=== PATIENT | male | born 1975 | race Caucasian/White ===

== ENCOUNTER 2018-10-10 21:46 | Inpatient (IN) | payer MEDICARE ==
[2018-10-10] MEDS ORDERED: ONDANSETRON 4 MG/2 ML VIAL IVPB ONE (22:11)
[2018-10-10] MEDS ORDERED: SODIUM CHLORIDE 1,000 ML IV ONE (22:11)
--- NOTE | 2018-10-10 22:12 | PDOC ---
Documentation entered by Linda Tate SCRIBE, acting as scribe for Nano Linton MD. Nano Linton MD: This documentation has been prepared by the Lea ríos Sammi, SCRIBE, under my direction and personally reviewed by me in its entirety. I confirm that the documentation accurately reflects all work, treatment, procedures, and medical decision making performed by me. History of Present Illness - General Chief Complaint: Vomiting/Diarrhea Stated Complaint: VOMITING & DIARRHEA History Source: Patient Exam Limitations: Language Barrier - History of Present Illness Initial Comments: 10/10/18 22:06 The patient is a 42 year old male who presents to the emergency department for evaluation of 2 days of vomiting, headache, and general malaise. Housemate at bedside the patient has appeared yellow the past 2 days. Denies SOB, chest pain. Denies sick contact or recent travel. PAST MEDICAL HISTORY: no significant history PAST SURGICAL HISTORY: no significant history FAMILY HISTORY: no pertinent history SOCIAL HISTORY: Pt lives with family and is employed. MEDICATIONS: reviewed ALLERGIES: As per nursing notes Review of Systems General: (+) headache. No fevers or chills, no weakness, no weight loss HEENT: No change in vision. No sore throat,. No ear pain CardioVascular: No chest pain or shortness of breath Respiratory:No cough, or wheezing. Gastrointestinal: (+)nausea, vomiting. No diarrhea or constipation, No rectal bleeding Genitourinary: No dysuria, hematuria, or frequency Musculoskeletal: No joint or muscle pain or swelling Neurologic: No vertigo, dizziness or loss of consciousness All other systems reviewed and normal Exam GENERAL: The patient is awake, alert, and fully oriented, in no acute distress. HEAD: Normal with no signs of trauma. EYES: Pupils equal, round and reactive to light, extraocular movements intact, sclera anicteric, conjunctiva clear. EXTREMITIES: Normal range of motion, no edema. NEUROLOGICAL: Normal speech, normal gait. PSYCH: Normal mood, normal affect. SKIN: Warm, Dry, normal turgor, no rashes or lesions noted. 10/10/18 22:10 Assessment and plan: This is a 42-year-old male brought in by his friend for evaluation of nausea vomiting. Patient hasn't vomiting and nausea for 2 days. Patient denies any chest pain abdominal pain shortness of breath cough congestion or diarrhea. Patient denies any recent travel. Labs were sent including CBC, comp and lipase. IV line was placed and patient is receiving IV fluids and Zofran. 10/10/18 23:37 Patient's hemoglobin came back 5.7. A rectal exam was done that showed normal- appearing brown stool however it was occult blood. Given the fact that patient' s MCV is 66 patient is most likely been having some mild chronic blood loss for a number of months to the point now his hemoglobin is 5.7. Patient came in for nausea and vomiting however he has had no further vomiting. 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 Patient will be admitted to an inpatient bed transfused 2 units and further evaluated. Patient will be admitted to the hospitalist service. Past History - Past Medical History Allergies/Adverse Reactions: Allergies Allergy/AdvReac Type Severity Reaction Status Date / Time No Known Allergies Allergy Verified 10/10/18 21:48 Home Medications: Ambulatory Orders NK [No Known Home Medication] 10/10/18 *Physical Exam - Vital Signs Last Vital Signs Temp Pulse Resp BP Pulse Ox 98.6 F 104 H 15 130/77 100 10/10/18 21:48 10/10/18 21:48 10/10/18 21:48 10/10/18 21:48 10/10/18 21:48 ED Treatment Course - LABORATORY CBC & Chemistry Diagram: 10/10/18 22:15 10/10/18 22:15 *DC/Admit/Observation/Transfer Diagnosis at time of Disposition: Anemia - Discharge Dispostion Condition at time of disposition: Good Decision to Admit order: Yes - Referrals - Patient Instructions - Post Discharge Activity
[2018-10-10] MEDS ORDERED: ONDANSETRON 4 MG/2 ML VIAL ONE (22:15)
[2018-10-10 22:29] LABS: BASO % 0.5 % (0-2.0); EOS % 0.9 % (0-4.5); LYMPH % 28.8 % (8-40); MCH 21.3 pg (25.7-33.7); MCHC 31.9 g/dl (32.0-35.9); MEAN CELL VOLUME 66.6 fl (80-96); MEAN PLT VOLUME 7.3 fl (7.5-11.1); MONO % 7.1 % (3.8-10.2); NEUT % 62.7 % (42.8-82.8); PLATELET COUNT 388 K/MM3 (134-434); RBC 2.69 M/mm3 (4.00-5.60); RDW 17.5 % (11.9-15.9); WHITE BLOOD COUNT 5.8 K/mm3 (4.0-10.8)
[2018-10-10 22:45] LABS: ADD RBC MORPHOLOGY YES; HEMATOCRIT 17.9 % (35.4-49); HEMOGLOBIN 5.7 GM/dl (11.7-16.9)
[2018-10-10 22:46] LABS: ALBUMIN 3.6 g/dl (3.4-5.0); BILIRUBIN,TOTAL 0.7 mg/dl (0.2-1); CALCIUM 8.6 mg/dl (8.5-10); POTASSIUM 3.4 mmol/L (3.5-5.1); TOT PROT 5.9 g/dl (6.4-8.2)
[2018-10-10 23:33] LABS: ANISOCYTOSIS 1+; PLATELET ESTIMATE SLT INCREASE
[2018-10-11] MEDS ORDERED: ONDANSETRON 4 MG/2 ML VIAL IVPUSH PRN ×2 (01:51→15:45)
[2018-10-11] MEDS ORDERED: SODIUM CHLORIDE 0.45% 1,000 ML IV SCH (02:00)
[2018-10-11 05:25] LABS: MCH 21.4 pg (25.7-33.7); MCHC 32.3 g/dl (32.0-35.9); MEAN CELL VOLUME 66.3 fl (80-96); PLATELET COUNT 367 K/MM3 (134-434); RBC 2.57 M/mm3 (4.00-5.60); RDW 18.8 % (11.9-15.9); WHITE BLOOD COUNT 9.8 K/mm3 (4.0-10.0)
[2018-10-11 05:34] LABS: HEMOGLOBIN 5.5 GM/dL (11.7-16.9)
--- NOTE | 2018-10-11 09:38 | EKG ---
Test Reason : Blood Pressure : / mmHG Vent. Rate : 105 BPM Atrial Rate : 105 BPM P-R Int : 116 ms QRS Dur : 136 ms QT Int : 382 ms P-R-T Axes : 053 -41 106 degrees QTc Int : 504 ms SINUS TACHYCARDIA VENTRICULAR PRE-EXCITATION, WPW PATTERN TYPE A ABNORMAL ECG NO PREVIOUS ECGS AVAILABLE Confirmed by Milton ROBERTS, Marcus ([id number]) on 10/11/2018 9:38:25 AM Referred By: ISABELA PIERRE Confirmed By:Marcus Rose MD
--- NOTE | 2018-10-11 09:51 | HP ---
CHIEF COMPLAINT: Blood per rectum PCP: None HISTORY OF PRESENT ILLNESS: 42 year-old male with no reported PMH and who has not seen a health care provider in 12 years, presented to the ED for evaluation of nausea, vomiting, and bleeding per rectum x 3 days. Patient states three days ago he first noticed blood in the toilet, separate from his stool. He describes the blood as "black." (Patient interviewed with [employer] controller). He has had approximately 10 such episodes over the past 3 days. On Wednesday patient began vomiting and this continued until Wednesday when he came to the ED. 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 He has been taking daily Advil for a long time. He denies any history of ulcers or any type of bleeding disorder. Patient denies any cardiac history, has never been told he has an irregular heart rhythm. Denies chest pain, palpitations, SOB, CRUZ, lower extremity edema. 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; lives with friends in [place] Smoking: denies Alcohol: denies Drugs: denies Family History: reviewed, non-contributory Allergies No Known Allergies Allergy (Verified 10/10/18 21:48) HOME MEDICATIONS: Home Medications Medication Instructions Recorded NK [No Known Home Medication] 10/10/18 REVIEW OF SYSTEMS CONSTITUTIONAL: Absent: fever, chills, diaphoresis, generalized weakness, malaise, loss of appetite, weight change HEENT: Absent: rhinorrhea, nasal congestion, throat pain, throat swelling, difficulty swallowing, mouth swelling, ear pain, eye pain, visual changes CARDIOVASCULAR: Absent: chest pain, syncope, palpitations, irregular heart rate, lightheadedness , peripheral edema RESPIRATORY: Absent: cough, shortness of breath, dyspnea with exertion, orthopnea, wheezing, stridor, hemoptysis GASTROINTESTINAL: +rectal bleeding/melena, nausea, vomiting Absent: abdominal pain, abdominal distension, nausea, vomiting, diarrhea, constipation, melena, hematochezia GENITOURINARY: Absent: dysuria, frequency, urgency, hesitancy, hematuria, flank pain, genital pain MUSCULOSKELETAL: Absent: myalgia, arthralgia, joint swelling, back pain, neck pain SKIN: Absent: rash, itching, pallor HEMATOLOGIC/IMMUNOLOGIC: Absent: easy bleeding, easy bruising, lymphadenopathy, frequent infections ENDOCRINE: Absent: unexplained weight gain, unexplained weight loss, heat intolerance, cold intolerance NEUROLOGIC: Absent: headache, focal weakness or paresthesias, dizziness, unsteady gait, seizure, mental status changes, bladder or bowel incontinence PSYCHIATRIC: Absent: anxiety, depression, suicidal or homicidal ideation, hallucinations. PHYSICAL EXAMINATION Vital Signs - 24 hr 10/10/18 10/10/18 10/11/18 21:48 23:36 00:48 Temperature 98.6 F 99 F Pulse Rate 104 H 95 H Pulse Rate [ 96 H Left] Respiratory 15 16 17 Rate Blood Pressure 130/77 129/64 Blood Pressure 119/73 [Right] O2 Sat by Pulse 100 100 98 Oximetry (%) 10/11/18 10/11/18 05:51 08:16 Temperature 98.4 F 98.4 F Pulse Rate 87 88 Pulse Rate [ Left] Respiratory 17 16 Rate Blood Pressure 107/55 L 116/60 Blood Pressure [Right] O2 Sat by Pulse 98 98 Oximetry (%) GENERAL: Awake, alert, and fully oriented, in no acute distress. HEAD: Normal with no signs of trauma. EYES: Pupils equal, round and reactive to light, extraocular movements intact, sclera anicteric, conjunctiva clear. No lid lag. LUNGS: Breath sounds equal, clear to auscultation bilaterally. No wheezes, and no crackles. No accessory muscle use. HEART: Regular rate and rhythm, S1 and S2 ABDOMEN: Soft, nontender, not distended UPPER EXTREMITIES: 2+ pulses, warm, well-perfused. No cyanosis. No clubbing. No peripheral edema. LOWER EXTREMITIES: 2+ pulses, warm, well-perfused. No calf tenderness. No peripheral edema. NEUROLOGICAL: Cranial nerves II-XII intact. Normal speech. Laboratory Results - last 24 hr 10/10/18 10/10/18 10/10/18 22:15 22:15 22:15 WBC 5.8 RBC 2.69 L Hgb 5.7 L* Hct 17.9 L MCV 66.6 L MCH 21.3 L MCHC 31.9 L RDW 17.5 H Plt Count 388 MPV 7.3 L Absolute Neuts (auto) 3.6 Neutrophils % 62.7 Lymphocytes % 28.8 Monocytes % 7.1 Eosinophils % 0.9 Basophils % 0.5 Hypochromia 3+ Platelet Estimate Slt increase Anisocytosis 1+ Microcytosis 1+ Sodium 138 Potassium 3.4 L Chloride 106 Carbon Dioxide 26 Anion Gap 6 L BUN 12.0 Creatinine 1.0 Est GFR (CKD-EPI)AfAm 106.36 Est GFR (CKD-EPI)NonAf 91.77 Random Glucose 178 H Calcium 8.6 Total Bilirubin 0.7 AST 20 ALT 15 Alkaline Phosphatase 66 Creatine Kinase Troponin I Total Protein 5.9 L Albumin 3.6 Lipase 141 Stool Occult Blood Blood Type Antibody Screen Crossmatch 10/10/18 10/10/18 10/10/18 22:15 22:15 22:15 WBC RBC Hgb Hct MCV MCH MCHC RDW Plt Count MPV Absolute Neuts (auto) Neutrophils % Lymphocytes % Monocytes % Eosinophils % Basophils % Hypochromia Platelet Estimate Anisocytosis Microcytosis Sodium Potassium Chloride Carbon Dioxide Anion Gap BUN Creatinine Est GFR (CKD-EPI)AfAm Est GFR (CKD-EPI)NonAf Random Glucose Calcium Total Bilirubin AST ALT Alkaline Phosphatase Creatine Kinase 115 Troponin I < 0.03 Total Protein Albumin Lipase Stool Occult Blood Positive Blood Type Antibody Screen Crossmatch 10/10/18 10/11/18 10/11/18 23:20 00:50 02:53 WBC 9.8 RBC 2.57 L Hgb 5.5 L* Hct 17.0 L MCV 66.3 L MCH 21.4 L MCHC 32.3 RDW 18.8 H Plt Count 367 MPV 8.0 Absolute Neuts (auto) Neutrophils % Lymphocytes % Monocytes % Eosinophils % Basophils % Hypochromia Platelet Estimate Anisocytosis Microcytosis Sodium Potassium Chloride Carbon Dioxide Anion Gap BUN Creatinine Est GFR (CKD-EPI)AfAm Est GFR (CKD-EPI)NonAf Random Glucose Calcium Total Bilirubin AST ALT Alkaline Phosphatase Creatine Kinase Troponin I Total Protein Albumin Lipase Stool Occult Blood Blood Type O POSITIVE O POSITIVE Antibody Screen Negative Crossmatch See Detail ASSESSMENT/PLAN 42 year-old male with no reported PMH and who has not seen a health care provider in 12 years. Admitted for acute blood loss anemia. 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 Full code. Visit type - Emergency Visit Emergency Visit: Yes ED Registration Date: 10/11/18 Care time: The patient presented to the Emergency Department on the above date and was hospitalized for further evaluation of their emergent condition. - New Patient This patient is new to me today: Yes Date on this admission: 10/11/18 - Critical Care Critical Care patient: No
[2018-10-11] MEDS ORDERED: FUROSEMIDE 40 MG/4 ML INJECTABLE VIAL IVPUSH ONE ×2 (10:34→15:45)
[2018-10-11] MEDS ORDERED: POTASSIUM CHLORIDE TABS 20 MEQ TABLET.ER (FP) PO ONE (12:00)
--- NOTE | 2018-10-11 12:00 | EKG ---
Test Reason : Blood Pressure : / mmHG Vent. Rate : 076 BPM Atrial Rate : 076 BPM P-R Int : 110 ms QRS Dur : 146 ms QT Int : 424 ms P-R-T Axes : 063 -49 088 degrees QTc Int : 477 ms NORMAL SINUS RHYTHM VENTRICULAR PRE-EXCITATION, WPW PATTERN TYPE A ABNORMAL ECG WHEN COMPARED WITH ECG OF 10-OCT-2018 23:03, NO SIGNIFICANT CHANGE WAS FOUND Confirmed by Marcus Rose MD ([id number]) on 10/11/2018 11:59:48 AM Referred By: FAUSTO Confirmed By:Marcus Rose MD
[2018-10-11 13:17] LABS: HEMATOCRIT 26.8 % (35.4-49); HEMOGLOBIN 8.4 GM/dl (11.7-16.9); MCH 23.6 pg (25.7-33.7); MCHC 31.5 g/dl (32.0-35.9); MEAN CELL VOLUME 74.9 fl (80-96); PLATELET COUNT 412 K/MM3 (134-434); RBC 3.58 M/mm3 (4.00-5.60); WHITE BLOOD COUNT 7.8 K/mm3 (4.0-10.8)
[2018-10-11 13:29] LABS: RDW 23.1 % (11.9-15.9)
--- NOTE | 2018-10-11 17:57 | HOSP ---
Subjective - Review of Symptoms Subjective: 42M transferred from [facility] to [facility] for evaluation of anemia. His Hgb was 5.7 and was microcytic. He was given 2 U PRBC and Hgb is 8.4. He states bnoticing rectal bleeding for three days prior that became darker as the days progressed. He takes ibuprofen for headache and has been taking one daily over the last 5 days. She denies abdominal pain, nausea, vomiting, recent change in stool caliber, unintentional weight loss. There has been no overt rectal bleeding since admission. There is no family history of colorectal cancer or other GI malignancy. He has no regular medical care. Physical Examination Vital Signs: Vital Signs Temperature 98.4 F 10/11/18 15:50 Pulse Rate 82 10/11/18 15:50 Respiratory Rate 20 10/11/18 16:05 Blood Pressure 124/71 10/11/18 15:50 O2 Sat by Pulse Oximetry (%) 100 10/11/18 16:05 Labs: CBC, BMP 10/11/18 13:10 10/10/18 22:15 Hospitalist Encounter Assessment: Seen by Dr Moreno from GI. Planned colonscopy/egd planned for tomorrow. NPO
[2018-10-11] MEDS ORDERED: BISACODYL 5 MG TABLET.DR (FP) PO ONE (18:12)
--- NOTE | 2018-10-11 18:21 | CON.GI ---
Consult Consult Specialty:: GI Referred by:: Hospitalist Service Reason for Consultation:: Anemia / rectal bleeding - History of Present Illness Chief Complaint: [employer]ographic [employer] [id number] utilized. Rectal bleeding / dark bowel movements History of Present Illness: 42M transferred from [facility] to [facility] for evaluation of anemia. His Hgb was 5.7 and was microcytic. He was given 2 U PRBC and Hgb is 8.4. He states bnoticing rectal bleeding for three days prior that became darker as the days progressed. He takes ibuprofen for headache and has been taking one daily over the last 5 days. She denies abdominal pain, nausea, vomiting, recent change in stool caliber, unintentional weight loss. There has been no overt rectal bleeding since admission. There is no family history of colorectal cancer or other GI malignancy. He has no regular medical care. - History Source History Provided By: Patient, Medical Record Limitations to Obtaining History: No Limitations - Past Medical History Additional Medical History: Denies - Past Surgical History Additional Surgical History: Denies - Alcohol/Substance Use Hx Alcohol Use: No History of Substance Use: reports: None - Smoking History Smoking history: Never smoked - Social History Usual Living Arrangement: Alone ADL: Independent Occupation: Works at [employer] Place of : Other ([facility]) Came to [place]year[place] 2004 History of Recent Travel: No Home Medications - Allergies Allergies/Adverse Reactions: Allergies Allergy/AdvReac Type Severity Reaction Status Date / Time No Known Allergies Allergy Verified 10/10/18 21:48 - Home Medications Home Medications: Ambulatory Orders NK [No Known Home Medication] 10/10/18 Family Disease History - Family Disease History Family Disease History: Other: Father (Alive: healthy), Mother (Alive: healthy) , Brother (1, healthy), Daughter (1, healthy) Other Family History: No family history of colorectal cancer or other GI malignancy Review of Systems - Review of Systems Constitutional: denies: Chills Cardiovascular: denies: Chest Pain Gastrointestinal: reports: Melena, Rectal Bleeding. denies: Abdominal Pain, Diarrhea, Vomiting, Vomiting Blood Physical Exam-GI Vital Signs: Vital Signs Temperature 98.4 F 10/11/18 15:50 Pulse Rate 82 10/11/18 15:50 Respiratory Rate 20 10/11/18 16:05 Blood Pressure 124/71 10/11/18 15:50 O2 Sat by Pulse Oximetry (%) 100 10/11/18 16:05 Constitutional: Yes: Calm Eyes: No: Sclera Icterus Cardiovascular: Yes: Regular Rate and Rhythm. No: Murmur Respiratory: Yes: CTA Bilaterally Gastrointestinal Inspection: No: Distention, Scars ...Auscultate: Yes: Normoactive Bowel Sounds ...Palpate: Yes: Soft. No: Hepatomegaly, Splenomegaly ...Percussion: No: Tympanitic ...Rectal Exam: Yes: Other (No external lesions, no masses, no blood/melena/ stool) Edema: No (No LE edema) Neurological: Yes: Alert Labs: CBC, BMP 10/11/18 13:10 10/10/18 22:15 Problem List - Problems (1) Anemia Assessment/Plan: Microcytic nature of his anemia suggests chronicity, likely worsened by acute GI bleed. Discussed this with Mr. Rodriguez. explained that upper endoscopy and colonoscopy can be undertaken to exclude potential causes of his rectal bleeding / anemia such as PUD, bleeding blood vesels, polyps or cancer of the GI tract such as colon cancer. We discussed potential risks of the procedures like but not limited to bleeding, perforation requiring surgery to repair, infection, sedation medication effects all of which could be potentially life threatening. He has agreed to the procedures. Plan for EGD/Colon 10/12 For now: Monitor H/H and for active bleeding. Keep Hgb >7 Clear diet ordered for tonight, NPO after midnight. OK to continue bowel prep after midnight for completion. Code(s): D64.9 - ANEMIA, UNSPECIFIED Qualifiers: Anemia type: unspecified type Qualified Code(s): D64.9 - Anemia, unspecified
[2018-10-11] MEDS ORDERED: PEG 3350/NA SULF BICARB CL/KCL 4000 ML SOLN.RECON PO ONE (19:00)
[2018-10-11 20:52] LABS: BLOOD UREA NITROGEN 6.1 mg/dL (7-18); CALCIUM 8.6 mg/dL (8.5-10.1); CREATININE 0.9 mg/dL (0.55-1.3); MAGNESIUM 2.2 mg/dL (1.8-2.4); POTASSIUM 3.9 mmol/L (3.5-5.1)
[2018-10-11 21:38] LABS: INR 1.11 (0.83-1.09); PROTHROMBIN TIME (PATIENT) 13.1 SEC (9.7-13.0)
[2018-10-12 06:34] LABS: BASO % 0.5 % (0-2.0); EOS % 0.2 % (0-4.5); HEMATOCRIT 24.8 % (35.4-49); HEMOGLOBIN 8.1 GM/dL (11.7-16.9); LYMPH % 23.8 % (8-40); MCH 23.5 pg (25.7-33.7); MCHC 32.8 g/dl (32.0-35.9); MEAN CELL VOLUME 71.7 fl (80-96); MEAN PLT VOLUME 7.3 fl (7.5-11.1); MONO % 7.9 % (3.8-10.2); NEUT % 67.6 % (42.8-82.8); PLATELET COUNT 395 K/MM3 (134-434); RBC 3.46 M/mm3 (4.00-5.60); RDW 24.3 % (11.9-15.9); WHITE BLOOD COUNT 7.3 K/mm3 (4.0-10.0)
[2018-10-12 06:57] LABS: ALBUMIN 3.6 g/dl (3.4-5.0); BILIRUBIN,TOTAL 1.2 mg/dL (0.2-1); BLOOD UREA NITROGEN 7.2 mg/dL (7-18); CALCIUM 8.6 mg/dL (8.5-10.1); CREATININE 0.8 mg/dL (0.55-1.3); MAGNESIUM 2.3 mg/dL (1.8-2.4); TOT PROT 6.2 g/dl (6.4-8.2)
--- NOTE | 2018-10-12 07:43 | PN ---
Progress Note, Physician Chief Complaint: no complaints offered, awaiting EGD History of Present Illness: 42 year-old male with no reported PMH and who has not seen a health care provider in 12 years, presented to the ED for evaluation of nausea, vomiting, and bleeding per rectum x 3 days. Patient states three days ago he first noticed blood in the toilet, separate from his stool. He describes the blood as "black." (Patient interviewed with Invaluable translator interpreter). He has had approximately 10 such episodes over the past 3 days. On Wednesday patient began vomiting and this continued until Wednesday when he came to the ED. 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 He has been taking daily Advil for a long time. He denies any history of ulcers or any type of bleeding disorder. Patient denies any cardiac history, has never been told he has an irregular heart rhythm. Denies chest pain, palpitations, SOB, CRUZ, lower extremity edema. - Current Medication List Current Medications: Active Medications Furosemide (Lasix Injection -) 40 mg IVPUSH ONCE ONE Stop: 10/11/18 15:46 Ondansetron HCl (Zofran Injection) 4 mg IVPUSH Q6H PRN PRN Reason: NAUSEA - Objective Vital Signs: Vital Signs Temperature 98.2 F 10/12/18 05:00 Pulse Rate 72 10/12/18 05:00 Respiratory Rate 18 10/12/18 07:30 Blood Pressure 114/76 10/12/18 05:00 O2 Sat by Pulse Oximetry (%) 100 10/12/18 07:30 Constitutional: Yes: Well Nourished, No Distress, Calm Eyes: Yes: WNL, Conjunctiva Clear, EOM Intact HENT: Yes: WNL, Atraumatic, Normocephalic Neck: Yes: WNL, Supple, Trachea Midline Cardiovascular: Yes: WNL, Regular Rate and Rhythm Respiratory: Yes: WNL, Regular, CTA Bilaterally Gastrointestinal: Yes: WNL, Normal Bowel Sounds, Soft Genitourinary: Yes: WNL Breast(s): Yes: WNL Musculoskeletal: Yes: WNL Extremities: Yes: WNL Edema: No Peripheral Pulses WNL: Yes Integumentary: Yes: WNL Neurological: Yes: WNL, Alert, Oriented ...Motor Strength: WNL Psychiatric: Yes: WNL, Alert, Oriented Labs: CBC, BMP 10/12/18 05:25 INR, PTT INR 1.11 (0.83-1.09) H 10/11/18 21:00 Problem List - Problems (1) Prophylactic measure Assessment/Plan: FEN bowel prep in progress , NPO monitor electrolytes DVT ambulatory no chemical AC Dispo maintain on tele full code discharge planning Code(s): Z29.9 - ENCOUNTER FOR PROPHYLACTIC MEASURES, UNSPECIFIED (2) Occult blood in stools Assessment/Plan: all stool for occult blood Code(s): R19.5 - OTHER FECAL ABNORMALITIES (3) Anemia Assessment/Plan: hgb 5.5 on admission, 2U PRBC-->8.1/24.8 after GI consulted and plan for today transfuse blood to keep hgb>8.0 start iron, folic acid when able to take PO Code(s): D64.9 - ANEMIA, UNSPECIFIED Qualifiers: Anemia type: unspecified type Qualified Code(s): D64.9 - Anemia, unspecified (4) WPW (Xblzs-Ttixqonlu-Mjvqb syndrome) Assessment/Plan: WPW Pattern Type A on EKG appreciate cardiology consultation maintain on tele serial trop serial ekg Code(s): I45.6 - PRE-EXCITATION SYNDROME Visit type - Emergency Visit Emergency Visit: Yes ED Registration Date: 10/10/18 Care time: The patient presented to the Emergency Department on the above date and was hospitalized for further evaluation of their emergent condition. - New Patient This patient is new to me today: Yes Date on this admission: 10/12/18 - Critical Care Critical Care patient: No - Discharge Referral Referred to [facility] Med [facility] No
--- NOTE | 2018-10-12 08:35 | CON.CARD ---
Consult Consult Specialty:: cardiology Reason for Consultation:: WPW - History of Present Illness Chief Complaint: Pt A&Ox3; no chest pain, dyspnea, palpitations. Feels weak. History of Present Illness: 42 year-old male (temitope Salas), with no reported PMH and who has not seen a health care provider in 12 years, presented to the ED for evaluation of nausea, vomiting, and bleeding per rectum x 3 days. Patient states three days ago he first noticed blood in the toilet, separate from his stool. He describes the blood as "black." (Patient interviewed with [employer] interpreter). He has had approximately 10 such episodes over the past 3 days. On Wednesday patient began vomiting and this continued until Wednesday when he came to the ED. 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 He has been taking daily Advil for a long time. He denies any history of ulcers or any type of bleeding disorder. Patient denies any cardiac history, has never been told he has an irregular heart rhythm. Denies chest pain, palpitations, SOB, CRUZ, lower extremity edema. Pt first noticed he was passing blood 4 months ago; in the past few days, the amount increased , and he felt a mass protruding from the anus at times. He felt weak and "turned white" a few days ago, and is not sure if he passed out before his friends brought him to the hospital. He has always been 120-125 lbs as an adult, and duane appreciable weight loss over the past several months. He denies personal or family hx of cardiac disease.No hx of sudden in the family. 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 He enjoys playing soccer, and was doing so until 6 weeks ago. He also often jogs for 30-45 minutes. He denies hx of chest pain, palpitations, or dyspnea. Never smoked or drank alcohol. ER course was notable for: (1) Hgb 5.5; Hct 17.0 (2) K 3.4 (3) occult stool positive (4) ECG: WPW Pattern Type A - History Source History Provided By: Patient, Medical Record Limitations to Obtaining History: No Limitations - Past Medical History Additional Medical History: Denies - Past Surgical History Additional Surgical History: Denies - Alcohol/Substance Use Hx Alcohol Use: No History of Substance Use: reports: None - Smoking History Smoking history: Never smoked - Social History Usual Living Arrangement: Alone ADL: Independent Occupation: Works at [employer] History of Recent Travel: No Home Medications - Allergies Allergies/Adverse Reactions: Allergies Allergy/AdvReac Type Severity Reaction Status Date / Time No Known Allergies Allergy Verified 10/10/18 21:48 - Home Medications Home Medications: Ambulatory Orders NK [No Known Home Medication] 10/10/18 Family Disease History - Family Disease History Family Disease History: Other: Father (Alive: healthy), Mother (Alive: healthy) , Brother (1, healthy), Daughter (1, healthy) Other Family History: No family history of colorectal cancer or other GI malignancy Review of Systems - Review of Systems Constitutional: reports: No Symptoms Eyes: reports: No Symptoms HENT: reports: No Symptoms Neck: reports: No Symptoms Cardiovascular: reports: No Symptoms Respiratory: reports: No Symptoms Gastrointestinal: reports: Rectal Bleeding Genitourinary: reports: No Symptoms Breasts: reports: No Symptoms Reported Musculoskeletal: reports: No Symptoms Integumentary: reports: No Symptoms Neurological: reports: No Symptoms Endocrine: reports: No Symptoms Hematology/Lymphatic: reports: Excessive Bleeding Psychiatric: reports: No Symptoms - Risk Factors Known Risk Factors: Yes: Age, Gender, Other (WPW) Vital Signs: Vital Signs Temperature 98.2 F 10/12/18 05:00 Pulse Rate 72 10/12/18 05:00 Respiratory Rate 18 10/12/18 07:30 Blood Pressure 114/76 10/12/18 05:00 O2 Sat by Pulse Oximetry (%) 100 10/12/18 07:30 Constitutional: Yes: Well Nourished Eyes: Yes: WNL HENT: Yes: WNL Neck: Yes: WNL Respiratory: Yes: WNL Gastrointestinal: Yes: Soft, Rectal Bleeding Renal/: Yes: WNL Cardiovascular: Yes: WNL JVD: No Carotid Bruit: No PMI: Non-Displaced Heart Sounds: Yes: S1, S2 - Other Data Labs, Other Data: CBC, BMP 10/12/18 05:25 10/12/18 05:25 INR, PTT INR 1.11 (0.83-1.09) H 10/11/18 21:00 Imaging - Results Chest X-ray: Image Reviewed EKG: Image Reviewed Other: Image Reviewed (telemetry: NSR; no arrhythmias) Problem List - Problems (1) WPW (Pirju-Mrkwpdmpa-Eckkf syndrome) Assessment/Plan: Pt was unaware of having any cardiac abnormalities. From detailed history, he has been asymptomatic throughout his life (no chest pain, palpitations, dyspnea, leg swelling; until the past few weeks, he had not felt dizzy or faint, and has been found to have severe anemia that likely explain these symptoms. TNI < 0.03 F/u with serial EKG, telemetry, and ECHO. Pt may be evaluated while walking to see if changes in delta waves occur, which will aid in decision on when and if invasive electrophysiologic testing is needed. Will discuss with LIANET Mc at [facility]. Addendum: ECHO 10/12/2018: normal LVEF; normal chamber sizes, trace to mild MR. (No evidence of Vianca's anomaly,which is sometimes associated with WPW). Discussed pt's case with LIANET Peters. From a cardiac perspective, there are no absolute contraindications for Mr. Dhillon to undergo endoscopy and colonoscopy during this admission. Code(s): I45.6 - PRE-EXCITATION SYNDROME (2) Anemia Code(s): D64.9 - ANEMIA, UNSPECIFIED Qualifiers: Anemia type: unspecified type Qualified Code(s): D64.9 - Anemia, unspecified
--- NOTE | 2018-10-12 09:07 | PN ---
Progress Note (short form) - Note Progress Note: Brief GI note Cardiology evaluation noted, pending echo in view of h/o WPW syndrome. Pending results can tentatively plan for EGD/colon later today if cleared by cardiology. Keep NPO for now. D/w nursing staff.
--- NOTE | 2018-10-12 13:04 | ECHO ---
Name: JT DALE Exam:Adult Echocardiogram Study Date: 10/12/2018 09:22 AM Age: 42 yrs Reason For Study: [id number] SYNDROME Height: 65 in Weight: 123 lb BSA: 1.6 m2 MMode/2D Measurements & Calculations IVSd: 0.90 cm Ao root diam: 2.9 cm LVIDd: 4.6 cm LA dimension: 2.3 cm LVIDs: 3.3 cm LVPWd: 0.74 cm EDV(Teich): 99.4 ml LVOT diam: 2.0 cm ESV(Teich): 44.6 ml Doppler Measurements & Calculations MV E max twin: 81.4 cm/sec Ao V2 max: 140.7 cm/sec MV A max twin: 63.7 cm/sec Ao max P.9 mmHg MV E/A: 1.3 Ao V2 mean: 99.1 cm/sec MV dec time: 0.17 sec Ao mean P.5 mmHg Ao V2 VTI: 27.2 cm FEMI(I,D): 1.9 cm2 FEMI(V,D): 2.1 cm2 LV V1 max P.9 mmHg SV(LVOT): 52.8 ml LV V1 mean P.7 mmHg LV V1 max: 98.7 cm/sec LV V1 mean: 59.9 cm/sec LV V1 VTI: 17.3 cm Med Peak E' Twin: 11.4 cm/sec Med E/e': 7.1 Lat Peak E' Twin: 13.3 cm/sec Lat E/e': 6.1 Procedure A two-dimensional transthoracic echocardiogram with color flow and Doppler was performed. Left Ventricle The left ventricular size, thickness and function are normal. The left ventricular ejection fraction is normal. Left Ventricular Filling pattern is normal for age. The left ventricular wall motion is alma l. Right Ventricle The right ventricle is normal in size and function. Atria Normal left and right atrial size and function. Mitral Valve The mitral valve is normal in structure and function. There is no mitral valve stenosis. There is tra ce to mild mitral regurgitation. Tricuspid Valve The tricuspid valve is normal in structure and function. There is no tricuspid stenosis. There was insufficient TR detected to calculate RV systolic pressure. Aortic Valve The aortic valve is not well visualized. No hemodynamically significant valvular aortic stenosis. No aortic regurgitation is present. Pulmonic Valve The pulmonic valve is not well visualized. Great Vessels The aortic root is normal size. Pericardium/Pleura There is no pericardial effusion. Interpretation Summary The left ventricular size, thickness and function are normal The left ventricular ejection fraction is normal. The left ventricular wall motion is normal. Left Ventricular Filling pattern is normal for age. There is trace to mild mitral regurgitation. There was insufficient TR detected to calculate RV systolic pressure. MD Saul Vernon 10/12/2018 01:03 PM
[2018-10-12] MEDS ORDERED: BISACODYL 5 MG TABLET.DR (FP) PO ONE (18:00)
[2018-10-12] MEDS ORDERED: PEG 3350/NA SULF BICARB CL/KCL 4000 ML SOLN.RECON PO ONE (18:00)
[2018-10-13 06:46] LABS: BASO % 0.7 % (0-2.0); EOS % 0.5 % (0-4.5); HEMATOCRIT 27.3 % (35.4-49); LYMPH % 21.9 % (8-40); MCH 23.6 pg (25.7-33.7); MCHC 32.9 g/dl (32.0-35.9); MEAN CELL VOLUME 71.7 fl (80-96); MEAN PLT VOLUME 7.3 fl (7.5-11.1); NEUT % 67.9 % (42.8-82.8); PLATELET COUNT 428 K/MM3 (134-434); RBC 3.81 M/mm3 (4.00-5.60); RDW 25.2 % (11.9-15.9); WHITE BLOOD COUNT 7.5 K/mm3 (4.0-10.0)
[2018-10-13 07:08] LABS: ALBUMIN 3.8 g/dl (3.4-5.0); BLOOD UREA NITROGEN 12.2 mg/dL (7-18); CALCIUM 9.1 mg/dL (8.5-10.1); CREATININE 0.9 mg/dL (0.55-1.3); MAGNESIUM 2.3 mg/dL (1.8-2.4); POTASSIUM 3.9 mmol/L (3.5-5.1); TOT PROT 6.5 g/dl (6.4-8.2)
--- NOTE | 2018-10-13 08:00 | PN ---
Progress Note, Physician Chief Complaint: no complaints offered, awaiting EGD History of Present Illness: 42 year-old male with no reported PMH and who has not seen a health care provider in 12 years, presented to the ED for evaluation of nausea, vomiting, and bleeding per rectum x 3 days. Patient states three days ago he first noticed blood in the toilet, separate from his stool. He describes the blood as "black." (Patient interviewed with [employer] information technology). He has had approximately 10 such episodes over the past 3 days. On Wednesday patient began vomiting and this continued until Wednesday when he came to the ED. 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 He has been taking daily Advil for a long time. He denies any history of ulcers or any type of bleeding disorder. Patient denies any cardiac history, has never been told he has an irregular heart rhythm. Denies chest pain, palpitations, SOB, CRUZ, lower extremity edema. - Current Medication List Current Medications: Active Medications Furosemide (Lasix Injection -) 40 mg IVPUSH ONCE ONE Stop: 10/11/18 15:46 Ondansetron HCl (Zofran Injection) 4 mg IVPUSH Q6H PRN PRN Reason: NAUSEA - Objective Vital Signs: Vital Signs Temperature 98.6 F 10/13/18 06:40 Pulse Rate 97 H 10/13/18 06:40 Respiratory Rate 20 10/13/18 06:40 Blood Pressure 122/65 10/13/18 06:40 O2 Sat by Pulse Oximetry (%) 100 10/12/18 21:00 Labs: CBC, BMP 10/13/18 05:25 10/13/18 05:25 INR, PTT INR 1.11 (0.83-1.09) H 10/11/18 21:00 Problem List - Problems (1) Prophylactic measure Code(s): Z29.9 - ENCOUNTER FOR PROPHYLACTIC MEASURES, UNSPECIFIED (2) Occult blood in stools Code(s): R19.5 - OTHER FECAL ABNORMALITIES (3) Anemia Code(s): D64.9 - ANEMIA, UNSPECIFIED Qualifiers: Anemia type: unspecified type Qualified Code(s): D64.9 - Anemia, unspecified (4) WPW (Vlqjy-Akpnmhdap-Cwfib syndrome) Code(s): I45.6 - PRE-EXCITATION SYNDROME
--- NOTE | 2018-10-13 12:14 | PN ---
Progress Note, Physician Chief Complaint: no complaints offered, awaiting EGD, canceled yesterday History of Present Illness: 42 year-old male with no reported PMH and who has not seen a health care provider in 12 years, presented to the ED for evaluation of nausea, vomiting, and bleeding per rectum x 3 days. Patient states three days ago he first noticed blood in the toilet, separate from his stool. 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 He has had approximately 10 such episodes over the past 3 days. On Wednesday patient began vomiting and this continued until Wednesday when he came to the ED. 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 He has been taking daily Advil for a long time. He denies any history of ulcers or any type of bleeding disorder. Patient denies any cardiac history, has never been told he has an irregular heart rhythm. Denies chest pain, palpitations, SOB, CRUZ, lower extremity edema. - Current Medication List Current Medications: Active Medications Ondansetron HCl (Zofran Injection) 4 mg IVPUSH Q6H PRN PRN Reason: NAUSEA - Objective Vital Signs: Vital Signs Temperature 98.8 F 10/13/18 10:00 Pulse Rate 88 10/13/18 10:00 Respiratory Rate 20 10/13/18 10:00 Blood Pressure 103/58 L 10/13/18 10:00 O2 Sat by Pulse Oximetry (%) 100 10/13/18 09:00 Constitutional: Yes: Well Nourished, No Distress, Calm Eyes: Yes: WNL, Conjunctiva Clear, EOM Intact HENT: Yes: WNL, Atraumatic, Normocephalic Neck: Yes: WNL, Supple, Trachea Midline Cardiovascular: Yes: WNL, Regular Rate and Rhythm Respiratory: Yes: WNL, Regular, CTA Bilaterally Gastrointestinal: Yes: WNL, Normal Bowel Sounds ...Rectal Exam: Yes: Deferred Genitourinary: Yes: WNL Breast(s): Yes: WNL Musculoskeletal: Yes: WNL Extremities: Yes: WNL Edema: No Peripheral Pulses WNL: Yes Integumentary: Yes: WNL Neurological: Yes: WNL, Alert, Oriented ...Motor Strength: WNL Psychiatric: Yes: WNL, Alert, Oriented Labs: CBC, BMP 10/13/18 05:25 10/13/18 05:25 INR, PTT INR 1.11 (0.83-1.09) H 10/11/18 21:00 Problem List - Problems (1) Prophylactic measure Assessment/Plan: FEN bowel prep in progress , NPO monitor electrolytes DVT ambulatory no chemical AC Dispo maintain on tele full code discharge planning Code(s): Z29.9 - ENCOUNTER FOR PROPHYLACTIC MEASURES, UNSPECIFIED (2) Occult blood in stools Assessment/Plan: all stool for occult blood Code(s): R19.5 - OTHER FECAL ABNORMALITIES (3) Anemia Assessment/Plan: hgb 5.5 on admission, 2U PRBC-->11/11 transfuse blood to keep hgb>8.0 c/w iron, folic acid when able to take PO Code(s): D64.9 - ANEMIA, UNSPECIFIED Qualifiers: Anemia type: unspecified type Qualified Code(s): D64.9 - Anemia, unspecified (4) WPW (Zpbfg-Iuvpbpnny-Oibzw syndrome) Assessment/Plan: WPW Pattern Type A on EKG appreciate cardiology consultation maintain on tele serial ekg Code(s): I45.6 - PRE-EXCITATION SYNDROME Visit type - Emergency Visit Emergency Visit: Yes ED Registration Date: 10/10/18 Care time: The patient presented to the Emergency Department on the above date and was hospitalized for further evaluation of their emergent condition. - New Patient This patient is new to me today: No - Critical Care Critical Care patient: No - Discharge Referral Referred to [facility] Med P.C.: No
--- NOTE | 2018-10-13 13:28 | PN ---
Progress Note, Physician Chief Complaint: Pt A&Ox3; anxious about upcoming GI procedures today. History of Present Illness: 42 year-old male (temitope Salas), with no reported PMH and who has not seen a health care provider in 12 years, presented to the ED for evaluation of nausea, vomiting, and bleeding per rectum x 3 days. Patient states three days ago he first noticed blood in the toilet, separate from his stool. 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 He has had approximately 10 such episodes over the past 3 days. On Wednesday patient began vomiting and this continued until Wednesday when he came to the ED. 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 He has been taking daily Advil for a long time. He denies any history of ulcers or any type of bleeding disorder. Patient denies any cardiac history, has never been told he has an irregular heart rhythm. Denies chest pain, palpitations, SOB, CRUZ, lower extremity edema. Pt first noticed he was passing blood 4 months ago; in the past few days, the amount increased , and he felt a mass protruding from the anus at times. He felt weak and "turned white" a few days ago, and is not sure if he passed out before his friends brought him to the hospital. He has always been 120-125 lbs as an adult, and duane appreciable weight loss over the past several months. He denies personal or family hx of cardiac disease.No hx of sudden in the family. 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 He enjoys playing soccer, and was doing so until 6 weeks ago. He also often jogs for 30-45 minutes. He denies hx of chest pain, palpitations, or dyspnea. Never smoked or drank alcohol. ER course was notable for: (1) Hgb 5.5; Hct 17.0 (2) K 3.4 (3) occult stool positive (4) ECG: WPW Pattern Type A - Current Medication List Current Medications: Active Medications Ondansetron HCl (Zofran Injection) 4 mg IVPUSH Q6H PRN PRN Reason: NAUSEA - Objective Vital Signs: Vital Signs Temperature 98.8 F 10/13/18 10:00 Pulse Rate 88 10/13/18 10:00 Respiratory Rate 20 10/13/18 10:00 Blood Pressure 103/58 L 10/13/18 10:00 O2 Sat by Pulse Oximetry (%) 100 10/13/18 09:00 Constitutional: Yes: Anxious Eyes: Yes: WNL HENT: Yes: WNL Neck: Yes: WNL Cardiovascular: Yes: WNL Respiratory: Yes: WNL Gastrointestinal: Yes: Soft. No: Tenderness ...Rectal Exam: Yes: Deferred Genitourinary: Yes: WNL Musculoskeletal: Yes: WNL Extremities: Yes: WNL Edema: No Peripheral Pulses WNL: Yes Integumentary: Yes: WNL Neurological: Yes: WNL Psychiatric: Yes: WNL Labs: CBC, BMP 10/13/18 05:25 10/13/18 05:25 INR, PTT INR 1.11 (0.83-1.09) H 10/11/18 21:00 Abnormal Lab Results 10/13/18 10/13/18 05:25 05:25 RBC 3.81 L Hgb 9.0 L Hct 27.3 L MCV 71.7 L MCH 23.6 L RDW 25.2 H MPV 7.3 L Anion Gap 6 L - ....Imaging Other: Image Reviewed (telemetry: NSR; delta waves (QRS); periods of sinus tachycardia) Problem List - Problems (1) WPW (Schjr-Oamidjpwa-Rudte syndrome) Assessment/Plan: Pt was unaware of having any cardiac abnormalities. From detailed history, he has been asymptomatic throughout his life (no chest pain, palpitations, dyspnea, leg swelling; until the past few weeks, he had not felt dizzy or faint, and has been found to have severe anemia that likely explain these symptoms. TNI < 0.03 F/u with serial EKG, telemetry, and ECHO. Pt may be evaluated while walking to see if changes in delta waves occur, which will aid in decision on when and if invasive electrophysiologic testing is needed. Will discuss with Dr. Sukhwinder Hector EP at [facility]. Addendum: ECHO 10/12/2018: normal LVEF; normal chamber sizes, trace to mild MR. (No evidence of Vianca's anomaly,which is sometimes associated with WPW). Discussed pt's case with LIANET Peters. From a cardiac perspective, there are no absolute contraindications for Mr. Dhillon to undergo endoscopy and colonoscopy during this admission. 10/13/2018: Asymptomatic; ansious about today's GI procedures. Addendum: pt was noted to develop increase in baselin sinus tachycardia (90-105 bpm at rest) to 130-140 bpm while in bathroom having a bowel movement. He had no chest pain, palpitations, dyspnea, or dizziness. THe HR subsided within a minute.He is A&Ox3; VSS. Disucssed pt with his gastroenterololgist and anesthesiologist to make team aware of pt's propensity to develop sinus tachycardia in the setting of anemia, anxiety, and the stresses that come with GI procedure. Maintain fluids; have metoprolol 2.5 mg IVP available if needed. (If pt develops wide-complex AF, procainimide or amiodarone should be used instead of AV conduction blockers;). Code(s): I45.6 - PRE-EXCITATION SYNDROME (2) Anemia Code(s): D64.9 - ANEMIA, UNSPECIFIED Qualifiers: Anemia type: unspecified type Qualified Code(s): D64.9 - Anemia, unspecified
--- NOTE | 2018-10-13 14:44 | PN ---
Progress Note (short form) - Note Progress Note: EGD/Coplon complete: No obvious bleeding source identified. ? hemorrhoidal bleeding. Some scattered diverticula in the sigmoid without stigmata of bleeding. The current bleeding also does not explain the microcytic nature of his anemia. This suggests more of a chronic underlying issue as well. Needs outpatient capsule Check iron studies. Needs an anemia work-up Hematology evaluation If significant active bleeding resumes, CTA of abdomen and pelvis / Meckel's scan Advanced diet Problem List - Problems (1) Anemia Code(s): D64.9 - ANEMIA, UNSPECIFIED Qualifiers: Anemia type: unspecified type Qualified Code(s): D64.9 - Anemia, unspecified
[2018-10-13] MEDS ORDERED: PT OWN MED DRAWER 7, Y5N ONE (16:51)
--- NOTE | 2018-10-13 17:14 | CONSULT ---
Consultation: REQUESTING PROVIDER: Dr. White CONSULT REQUEST: We have been asked to medically evaluate this patient for anemia HISTORY OF PRESENT ILLNESS: 42 year old male with no reported past medical history presented to the hospital for three days of bleeding per rectum. He noticed the blood after he went to the bathroom and noticed the toilet bowl both red and black. States that he felt no associated abdominal pain, rectal pain, nausea or vomiting. Reports nearly 10-15 episodes of bleeding per rectum. 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 Denies any other medications or over the counter supplements. On admission, patient's hemoglobin was 5.5 and microcytic. He received 2U PRBCs and his counts improved appropriately to 9.0. EGD/Colonoscopy was done by Dr. White which showed no active bleeding, some scattered diverticula, questionable hemorrhoidal bleed. Denies any recent travel or sick contacts. Currently denies bleeding. Patient states that he is hungry. Noted to have Dyfz-Qccddrmyf-Fcjjd on EKG, never carried this diagnosis in the past. Denies palpitations, lightheadedness or chest pain. Allergies: none Smoking: none Alcohol use: none Family History: no family history of heart disease, cancer, bleeding or clotting Occupation: employee at [employer] REVIEW OF SYSTEMS: CONSTITUTIONAL: Absent: fever, chills, diaphoresis, generalized weakness, malaise, loss of appetite, weight change HEENT: Absent: rhinorrhea, nasal congestion, throat pain, throat swelling, difficulty swallowing, mouth swelling, ear pain, eye pain, visual changes CARDIOVASCULAR: Absent: chest pain, syncope, palpitations, irregular heart rate, lightheadedness , peripheral edema RESPIRATORY: Absent: cough, shortness of breath, dyspnea with exertion, orthopnea, wheezing, stridor, hemoptysis GASTROINTESTINAL: Absent: abdominal pain, abdominal distension, nausea, vomiting, diarrhea, constipation, melena, hematochezia GENITOURINARY: Absent: dysuria, frequency, urgency, hesitancy, hematuria, flank pain, genital pain MUSCULOSKELETAL: Absent: myalgia, arthralgia, joint swelling, back pain, neck pain SKIN: Absent: rash, itching, pallor HEMATOLOGIC/IMMUNOLOGIC: Absent: easy bleeding, easy bruising, lymphadenopathy, frequent infections ENDOCRINE: Absent: unexplained weight gain, unexplained weight loss, heat intolerance, cold intolerance NEUROLOGIC: Absent: headache, focal weakness or paresthesias, dizziness, unsteady gait, seizure, mental status changes, bladder or bowel incontinence PSYCHIATRIC: Absent: anxiety, depression, suicidal or homicidal ideation, hallucinations. PHYSICAL EXAMINATION Vital Signs - 24 hr 10/12/18 10/12/18 10/13/18 20:30 21:00 01:00 Temperature 98.2 F 98.4 F Pulse Rate 84 81 Respiratory 18 18 Rate Blood Pressure 124/63 106/66 O2 Sat by Pulse 100 Oximetry (%) 10/13/18 10/13/18 10/13/18 06:40 09:00 10:00 Temperature 98.6 F 98.8 F Pulse Rate 97 H 88 Respiratory 20 20 20 Rate Blood Pressure 122/65 103/58 L O2 Sat by Pulse 100 Oximetry (%) 10/13/18 10/13/18 10/13/18 14:48 15:03 15:19 Temperature 98.2 F Pulse Rate 75 69 70 Respiratory 20 18 18 Rate Blood Pressure 108/77 111/69 118/74 O2 Sat by Pulse 100 100 100 Oximetry (%) 10/13/18 15:22 Temperature Pulse Rate 73 Respiratory 18 Rate Blood Pressure 118/74 O2 Sat by Pulse 100 Oximetry (%) GENERAL: A&Ox3, no acute distress EYES: PERRLA, EOMI ENT: Moist mucus membranes NECK: No JVD, no lymphadenopathy LUNGS: CTA, no wheezes BREAST: no masses or nodules noted HEART: RRR, no murmurs ABDOMEN: Soft, nontender, BS present MUSCULOSKELETAL: No CVA Tenderness EXTREMITIES: 2+ pulses, no edema. NEUROLOGICAL: Cranial nerves II-XII intact Laboratory Results - last 24 hr 10/13/18 10/13/18 05:25 05:25 WBC 7.5 RBC 3.81 L Hgb 9.0 L Hct 27.3 L MCV 71.7 L MCH 23.6 L MCHC 32.9 RDW 25.2 H Plt Count 428 MPV 7.3 L Absolute Neuts (auto) 5.1 Neutrophils % 67.9 Lymphocytes % 21.9 Monocytes % 9.0 Eosinophils % 0.5 D Basophils % 0.7 Nucleated RBC % 0 Sodium 140 Potassium 3.9 Chloride 106 Carbon Dioxide 28 Anion Gap 6 L BUN 12.2 Creatinine 0.9 Est GFR (CKD-EPI)AfAm 120.81 Est GFR (CKD-EPI)NonAf 104.24 Random Glucose 86 Calcium 9.1 Magnesium 2.3 Total Bilirubin 1.0 AST 16 ALT 21 Alkaline Phosphatase 81 Total Protein 6.5 Albumin 3.8 Active Medications Generic Name Dose Route Start Last Admin Trade Name Freq PRN Reason Stop Dose Admin Hydrocortisone Acetate 25 mg 10/13/18 22:00 Anusol Hc Suppository - RC 10/15/18 22:01 HS AUDREY Ondansetron HCl 4 mg 10/11/18 15:45 Zofran Injection IVPUSH Q6H PRN NAUSEA ASSESSMENT/PLAN: 42 year old male with no reported past medical history presented to the hospital for three days of bleeding per rectum. We are consulted for evaluation of anemia #Microcytic Anemia #GI Bleed #Louise Parkinson White #Microcytic Anemia: suspect this is related to iron deficiency anemia in the setting of acute blood loss -would recommend avoiding NSAIDs -iron studies in the AM -reticulocute count -repeat CBC in the morning -if iron studies show confirm deficiency anemia, recommend Venofer infusion 200mg every other day for 5 total doses #GI Bleed: appears to have resolved, EGD/Colonoscopy performed by Dr. White -monitor CBC in the morning -transfuse to a hgb goal of 7 -full liquid diet, advance as per GI/primary -CBC in morning with iron studies #Adeel Parkinson White: currently asymptomatic, new diagnosis -cards recommendations appreciated, may need EP study Josue Pettit D.O., PGY-[address] Martinez <Josue Pettit - Last Filed: 10/13/18 17:26> Consultation: REQUESTING PROVIDER: CONSULT REQUEST: We have been asked to medically evaluate this patient for ( specify). HISTORY OF PRESENT ILLNESS: REVIEW OF SYSTEMS: CONSTITUTIONAL: Absent: fever, chills, diaphoresis, generalized weakness, malaise, loss of appetite, weight change HEENT: Absent: rhinorrhea, nasal congestion, throat pain, throat swelling, difficulty swallowing, mouth swelling, ear pain, eye pain, visual changes CARDIOVASCULAR: Absent: chest pain, syncope, palpitations, irregular heart rate, lightheadedness , peripheral edema RESPIRATORY: Absent: cough, shortness of breath, dyspnea with exertion, orthopnea, wheezing, stridor, hemoptysis GASTROINTESTINAL: Absent: abdominal pain, abdominal distension, nausea, vomiting, diarrhea, constipation, melena, hematochezia GENITOURINARY: Absent: dysuria, frequency, urgency, hesitancy, hematuria, flank pain, genital pain MUSCULOSKELETAL: Absent: myalgia, arthralgia, joint swelling, back pain, neck pain SKIN: Absent: rash, itching, pallor HEMATOLOGIC/IMMUNOLOGIC: Absent: easy bleeding, easy bruising, lymphadenopathy, frequent infections ENDOCRINE: Absent: unexplained weight gain, unexplained weight loss, heat intolerance, cold intolerance NEUROLOGIC: Absent: headache, focal weakness or paresthesias, dizziness, unsteady gait, seizure, mental status changes, bladder or bowel incontinence PSYCHIATRIC: Absent: anxiety, depression, suicidal or homicidal ideation, hallucinations. PHYSICAL EXAMINATION GENERAL: Awake, alert, and fully oriented, in no acute distress. HEAD: Normal with no signs of trauma. EYES: Pupils equal, round and reactive to light, extraocular movements intact, sclera anicteric, conjunctiva clear. No lid lag. EARS, NOSE, THROAT: Ears normal, nares patent, oropharynx clear without exudates. Moist mucous membranes. NECK: Normal range of motion, supple without lymphadenopathy, JVD, or masses. LUNGS: Breath sounds equal, clear to auscultation bilaterally. No wheezes, and no crackles. No accessory muscle use. HEART: Regular rate and rhythm, normal S1 and S2 without murmur, rub or gallop. ABDOMEN: Soft, nontender, not distended, normoactive bowel sounds, no guarding, no rebound, no masses. No hepatomegaly or splenomegaly. MUSCULOSKELETAL: Normal range of motion at all joints. No bony deformities or tenderness. No CVA tenderness. UPPER EXTREMITIES: 2+ pulses, warm, well-perfused. No cyanosis. No clubbing. Cap refill <2 seconds. No peripheral edema. LOWER EXTREMITIES: 2+ pulses, warm, well-perfused. No calf tenderness. No peripheral edema. NEUROLOGICAL: Cranial nerves II-XII intact. Normal speech. Normal gait. PSYCHIATRIC: Cooperative. Good eye contact. Appropriate mood and affect. SKIN: Warm, dry, normal turgor, no rashes or lesions noted. ASSESSMENT/PLAN: Dispo: We will continue to follow the patient. Thank you for this consultative opportunity. <Michelle Vaca - Last Filed: 10/16/18 21:42> Visit type - Emergency Visit Emergency Visit: No - New Patient This patient is new to me today: Yes Date on this admission: 10/13/18 - Critical Care Critical Care patient: No <Josue Pettit - Last Filed: 10/13/18 17:26> ATTENDING PHYSICIAN STATEMENT I saw and evaluated the patient. I reviewed the resident's note and discussed the case with the resident. I agree with the resident's findings and plan as documented. SUBJECTIVE: OBJECTIVE: ASSESSMENT AND PLAN: <Josue Pettit - Last Filed: 10/13/18 17:26> ATTENDING PHYSICIAN STATEMENT I saw and evaluated the patient. I reviewed the resident's note and discussed the case with the resident. I agree with the resident's findings and plan as documented. SUBJECTIVE: OBJECTIVE: ASSESSMENT AND PLAN: <Michelle Vaca - Last Filed: 10/16/18 21:42>
[2018-10-13] MEDS ORDERED: IRON SUCROSE INJECTION 200 MG in SODIUM CHLORIDE 90 ML IVPB SCH (22:00)
[2018-10-13] MEDS ORDERED: HYDROCORTISONE ACETATE 25 MG/SUPP.RECT RC SCH (22:00)
--- NOTE | 2018-10-13 23:44 | PN ---
Teaching Attending Note Name of Resident: Josue Pettit ATTENDING PHYSICIAN STATEMENT I saw and evaluated the patient. I reviewed the resident's note and discussed the case with the resident. I agree with the resident's findings and plan as documented. ASSESSMENT AND PLAN: 42 year old male with no reported past medical history presented to the hospital for three days of bleeding per rectum. On admission, patient's hemoglobin was 5.5 and microcytic. He received 2U PRBCs and his counts improved appropriately to 9.0. EGD/Colonoscopy was done by Dr. White which showed no active bleeding, some scattered diverticula, questionable hemorrhoidal bleed. For venofer 200mg IVSS QOD x 5 doses Needs follow up as outpatient with GI Team
--- NOTE | 2018-10-14 07:55 | PN ---
Progress Note, Physician - Current Medication List Current Medications: Active Medications Hydrocortisone Acetate (Anusol Hc Suppository -) 25 mg RC HS AUDREY Stop: 10/15/18 22:01 Last Admin: 10/13/18 23:16 Dose: 25 mg Iron Sucrose 200 mg/ Sodium (Chloride) 100 mls @ 100 mls/hr IVPB Q2D AUDREY Stop: 10/21/18 10:59 Last Admin: 10/13/18 23:16 Dose: 100 mls/hr Ondansetron HCl (Zofran Injection) 4 mg IVPUSH Q6H PRN PRN Reason: NAUSEA - Objective Vital Signs: Vital Signs Temperature 98.4 F 10/14/18 05:00 Pulse Rate 82 10/14/18 05:00 Respiratory Rate 20 10/14/18 05:00 Blood Pressure 118/61 10/14/18 05:00 O2 Sat by Pulse Oximetry (%) 100 10/13/18 21:00 Labs: INR, PTT INR 1.11 (0.83-1.09) H 10/11/18 21:00 Problem List - Problems (1) Prophylactic measure Code(s): Z29.9 - ENCOUNTER FOR PROPHYLACTIC MEASURES, UNSPECIFIED (2) Occult blood in stools Code(s): R19.5 - OTHER FECAL ABNORMALITIES (3) Anemia Code(s): D64.9 - ANEMIA, UNSPECIFIED Qualifiers: Anemia type: unspecified type Qualified Code(s): D64.9 - Anemia, unspecified (4) WPW (Ybzun-Yjkscbbip-Swkgr syndrome) Code(s): I45.6 - PRE-EXCITATION SYNDROME
[2018-10-14 08:06] LABS: BASO % 0.4 % (0-2.0); EOS % 0.5 % (0-4.5); HEMATOCRIT 25.1 % (35.4-49); HEMOGLOBIN 8.2 GM/dL (11.7-16.9); LYMPH % 16.9 % (8-40); MCH 23.4 pg (25.7-33.7); MCHC 32.7 g/dl (32.0-35.9); MEAN CELL VOLUME 71.6 fl (80-96); MEAN PLT VOLUME 7.4 fl (7.5-11.1); MONO % 8.7 % (3.8-10.2); NEUT % 73.5 % (42.8-82.8); PLATELET COUNT 389 K/MM3 (134-434); RBC 3.51 M/mm3 (4.00-5.60); RDW 24.7 % (11.9-15.9); RETICULOCYTES 2.39 % (0.5-1.5); WHITE BLOOD COUNT 6.3 K/mm3 (4.0-10.0)
[2018-10-14 08:40] LABS: ALBUMIN 3.5 g/dl (3.4-5.0); BILIRUBIN,TOTAL 0.8 mg/dL (0.2-1); BLOOD UREA NITROGEN 13.6 mg/dL (7-18); CALCIUM 8.7 mg/dL (8.5-10.1); CREATININE 0.9 mg/dL (0.55-1.3); MAGNESIUM 2.3 mg/dL (1.8-2.4); POTASSIUM 3.8 mmol/L (3.5-5.1); TOT PROT 5.9 g/dl (6.4-8.2)
[2018-10-14 09:24] LABS: ANISOCYTOSIS 2+; MACROCYTOSIS 0; PLATELET ESTIMATE NORMAL; TEAR DROP CELLS 1+
[2018-10-14 10:03] VITALS: BP 140/63; PULSE 84; TEMP 99.7
--- NOTE | 2018-10-14 13:08 | DS ---
Physical Exam: SUBJECTIVE: Patient seen and examined OBJECTIVE: Vital Signs Period Temp Pulse Resp BP Sys/Grajeda Pulse Ox Last 24 Hr 98.2 F-99.7 F 69-86 18-20 103-140/51-77 100-100 PHYSICAL EXAM Constitutional: Yes: Well Nourished, No Distress, Calm Eyes: Yes: WNL, Conjunctiva Clear, EOM Intact HENT: Yes: WNL, Atraumatic, Normocephalic Neck: Yes: WNL, Supple, Trachea Midline Cardiovascular: Yes: WNL, Regular Rate and Rhythm Respiratory: Yes: WNL, Regular, CTA Bilaterally Gastrointestinal: Yes: WNL, Normal Bowel Sounds ...Rectal Exam: Yes: Deferred Genitourinary: Yes: WNL Breast(s): Yes: WNL Musculoskeletal: Yes: WNL Extremities: Yes: WNL Edema: No Peripheral Pulses WNL: Yes Integumentary: Yes: WNL Neurological: Yes: WNL, Alert, Oriented ...Motor Strength: WNL Psychiatric: Yes: WNL, Alert, Oriented Labs: Laboratory Results - last 24 hr 10/10/18 10/14/18 10/14/18 23:20 06:15 06:15 WBC 6.3 RBC 3.51 L Hgb 8.2 L Hct 25.1 L MCV 71.6 L MCH 23.4 L MCHC 32.7 RDW 24.7 H Plt Count 389 MPV 7.4 L Absolute Neuts (auto) 4.6 Neutrophils % 73.5 Lymphocytes % 16.9 D Monocytes % 8.7 Eosinophils % 0.5 Basophils % 0.4 Nucleated RBC % 0 Hypochromia 1+ Platelet Estimate Normal Polychromasia 2+ Poikilocytosis 1+ Basophilic Stippling 1+ Anisocytosis 2+ Microcytosis 2+ Macrocytosis 0 Tear Drop Cells 1+ Schistocytes 1+ Retic Count 2.39 H Sodium 142 Potassium 3.8 Chloride 106 Carbon Dioxide 30 Anion Gap 6 L BUN 13.6 Creatinine 0.9 Est GFR (CKD-EPI)AfAm 120.81 Est GFR (CKD-EPI)NonAf 104.24 Random Glucose 78 Calcium 8.7 Magnesium 2.3 Iron TIBC Iron Saturation Unsaturated IBC Ferritin Total Bilirubin 0.8 AST 15 ALT 18 Alkaline Phosphatase 76 Total Protein 5.9 L Albumin 3.5 Vitamin B12 Serum Folate Blood Type O POSITIVE Antibody Screen Negative Crossmatch See Detail 10/14/18 06:15 WBC RBC Hgb Hct MCV MCH MCHC RDW Plt Count MPV Absolute Neuts (auto) Neutrophils % Lymphocytes % Monocytes % Eosinophils % Basophils % Nucleated RBC % Hypochromia Platelet Estimate Polychromasia Poikilocytosis Basophilic Stippling Anisocytosis Microcytosis Macrocytosis Tear Drop Cells Schistocytes Retic Count Sodium Potassium Chloride Carbon Dioxide Anion Gap BUN Creatinine Est GFR (CKD-EPI)AfAm Est GFR (CKD-EPI)NonAf Random Glucose Calcium Magnesium Iron 416 H TIBC 450 Iron Saturation 92 H Unsaturated IBC 34 L Ferritin 12.2 Total Bilirubin AST ALT Alkaline Phosphatase Total Protein Albumin Vitamin B12 260 Serum Folate 17 Blood Type Antibody Screen Crossmatch HOSPITAL COURSE: Date of Admission:10/10/18 Date of Discharge: 10/14/18 42 year-old male with no reported PMH and who has not seen a health care provider in 12 years, presented to the ED for evaluation of nausea, vomiting, and bleeding per rectum x 3 days. Patient states three days ago he first noticed blood in the toilet, separate from his stool. He describes the blood as "black." (Patient interviewed with [employer]). He has had approximately 10 such episodes over the past 3 days. On Wednesday patient began vomiting and this continued until Wednesday when he came to the ED. 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 He has been taking daily Advil for a long time. He denies any history of ulcers or any type of bleeding disorder. Patient denies any cardiac history, has never been told he has an irregular heart rhythm. Denies chest pain, palpitations, SOB, CRUZ, lower extremity edema. EGD/Coplon completed by Dr Moreno: No obvious bleeding source identified. ? hemorrhoidal bleeding. Some scattered diverticula in the sigmoid without stigmata of bleeding. Will needs outpatient capsule study Check iron studies and anemia work-up with Hematology evaluation If significant active bleeding resumes, CTA of abdomen and pelvis / Meckel's scan Advanced diet TTE: nml EF. Mild MR - Problems (1) Prophylactic measure Assessment/Plan: FEN high iron diet (2) Occult blood in stools Assessment/Plan: no further rectal bleeding (3) Anemia Assessment/Plan: Transfused 3 units PRBC. Iron IV started every other day until 10/21. 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 Will follow with tube winder hand after discharge Patient is stable to be discharged home to return with services for iron infusions until 10/21 Minutes to complete discharge: 35 Discharge Summary Reason For Visit: ANEMIA Current Active Problems Anemia (Acute) Occult blood in stools (Acute) Prophylactic measure (Acute) WPW (Tsrfg-Jxenleokp-Pyxpo syndrome) (Acute) Other Procedures: EGD/Colonscopy Hospital Course: HOSPITAL COURSE: Date of Admission:10/10/18 Date of Discharge: 10/14/18 42 year-old male with no reported PMH and who has not seen a health care provider in 12 years, presented to the ED for evaluation of nausea, vomiting, and bleeding per rectum x 3 days. Patient states three days ago he first noticed blood in the toilet, separate from his stool. 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 He has had approximately 10 such episodes over the past 3 days. On Wednesday patient began vomiting and this continued until Wednesday when he came to the ED. 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 He has been taking daily Advil for a long time. He denies any history of ulcers or any type of bleeding disorder. Patient denies any cardiac history, has never been told he has an irregular heart rhythm. Denies chest pain, palpitations, SOB, CRUZ, lower extremity edema. EGD/Coplon completed by Dr Moreno: No obvious bleeding source identified. ? hemorrhoidal bleeding. Some scattered diverticula in the sigmoid without stigmata of bleeding. Will needs outpatient capsule study Check iron studies and anemia work-up with Hematology evaluation If significant active bleeding resumes, CTA of abdomen and pelvis / Meckel's scan Advanced diet - Problems (1) Prophylactic measure Assessment/Plan: FEN high iron diet (2) Occult blood in stools Assessment/Plan: no further rectal bleeding (3) Anemia Assessment/Plan: Transfused 3 units PRBC. Iron IV started every other day until 10/21. 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 You were very anemic (low blood count) and received a blood transfusion-several pints of blood. You had an upper and lower endoscopy and not acute bleeding from the stomach or colon. You are giving you an infusion of iron every other day for 5 bags. You will come to the hospital tomorrow to have youre next infusion. If you have any more bleeding return back to the hospital. You can return back to your normal diet. Eat foods that are high in iron-information on diet will be included in youre discharge packet Referrals: Arnulfo White DO [Staff Physician] - Disposition: HOME - Home Medications Comprehensive Discharge Medication List: Ambulatory Orders Iron Sucrose Injection [Venofer Injection -] 200 mg IVPB Q2D vial 10/14/18 Problem List - Problems (1) Prophylactic measure Code(s): Z29.9 - ENCOUNTER FOR PROPHYLACTIC MEASURES, UNSPECIFIED (2) Occult blood in stools Code(s): R19.5 - OTHER FECAL ABNORMALITIES (3) Anemia Code(s): D64.9 - ANEMIA, UNSPECIFIED Qualifiers: Anemia type: iron deficiency (4) WPW (Gubwq-Klouwggez-Wnkqb syndrome) Code(s): I45.6 - PRE-EXCITATION SYNDROME (5) Iron deficiency anemia Code(s): D50.9 - IRON DEFICIENCY ANEMIA, UNSPECIFIED This patient is new to me today: No Emergency Visit: Yes ED Registration Date: 10/10/18 Care time: The patient presented to the Emergency Department on the above date and was hospitalized for further evaluation of their emergent condition. Critical Care patient: No - Discharge Referral Referred to [facility] No
--- NOTE | 2018-10-18 16:55 | PATH ---
Surgical Pathology Report Patient Name: JT DALE Med. Rec. #: [id number] /Age/Gender: 1975 (Age: 42) / M Account: [id number] Location: 4 TELEMETRY U Taken: 10/13/2018 Received: 10/14/2018 Reported: 10/18/2018 Physicians: Jaime White D.O. Specimen(s) Received A: DUODENUM AND BULB B: ANTRUM EROSION C: ANGULARIS AND BODY Clinical History GI bleeding. Postoperative diagnosis: Gastric erosion, mild diverticulosis, internal hemorrhoid Final Diagnosis A. DUODENUM AND BULB, BIOPSY: DUODENAL MUCOSA WITH MODERATE CHRONIC DUODENITIS. B. STOMACH, ANTRUM EROSION, BIOPSY: GASTRIC ANTRAL MUCOSA WITH SEVERE CHRONIC ACTIVE GASTRITIS AND ASSOCIATED ULCERATION. IMMUNOHISTOCHEMICAL STAIN FOR H. PYLORI IS POSITIVE (MANY). C. STOMACH, ANGULARIS AND BODY, BIOPSY: GASTRIC ANTRAL MUCOSA WITH MODERATE TO SEVERE CHRONIC ACTIVE GASTRITIS. IMMUNOHISTOCHEMICAL STAIN FOR H. PYLORI IS POSITIVE (MANY). Electronically Signed Kandace Adames M.D. Gross Description A. Received in formalin, labeled "duodenum and bulb" are 2 simon, irregular portions of soft tissue, each measuring 0.4 cm. in greatest dimension. The specimens are submitted in toto in one cassette. B. Received in formalin, labeled "antrum erosion" are 2 simon, irregular portions of soft tissue, each measuring 0.3 cm. in greatest dimension. The specimens are submitted in toto in one cassette. C. Received in formalin, labeled "angularis and body" are 2 simon, irregular portions of soft tissue, each measuring 0.4 cm. in greatest dimension. The specimens are submitted in toto in one cassette. AE/10/14/2018 ebram/10/14/2018
== END 2018-10-14 15:01 | disposition home or self-care (01) | DRG 253 ==
LOC: FER 21:46 → FM/S 23:49 → UNDOADMIN 10-11 00:22 → J4W 10-11 15:21
PROVIDERS: ADMIT Internal Medicine; ATTEND Nurse Practitioner Acute Care
PROC: 30233N1 Transfusion of Nonautologous Red Blood Cells into Peripheral Vein, Percutaneous Approach (ICD-10-PCS; principal; 2018-10-10)
PROC: 0DJD8ZZ Inspection of Lower Intestinal Tract, Via Natural or Artificial Opening Endoscopic (ICD-10-PCS; 2018-10-13)
PROC: 0DB98ZX Excision of Duodenum, Via Natural or Artificial Opening Endoscopic, Diagnostic (ICD-10-PCS; 2018-10-13)
PROC: 0DB68ZX Excision of Stomach, Via Natural or Artificial Opening Endoscopic, Diagnostic (ICD-10-PCS; 2018-10-13)
DX: K92.2 Gastrointestinal hemorrhage, unspecified (principal); D62 Acute posthemorrhagic anemia; R11.2 Nausea with vomiting, unspecified; I45.6 Pre-excitation syndrome; E87.6 Hypokalemia; R19.5 Other fecal abnormalities; K64.8 Other hemorrhoids; K57.30 Diverticulosis of large intestine without perforation or abscess without bleeding
CPT/HCPCS: 36415; 36430; 36511; 71045-TC-FY; 80048; 80053; 82272; 82550; 82607; 82728; 82746; 83540; 83550; 83690; 83735; 84484; 85025; 85027; 85044; 85610; 86850; 86900; 86901; 86922; 87177; 87209; 88305-TC; 93005; 93306-TC; 99282-25; J1756; J7030; P9038; P9058

== ENCOUNTER 2018-10-17 09:10 | Day surgery (SDC) | payer MEDICARE ==
[2018-10-17] MEDS ORDERED: FERRIC CARBOXYMALTOSE 750 MG in SODIUM CHLORIDE 250 ML IVPB ONE (10:00)
[2018-10-17] MEDS ORDERED: IRON SUCROSE INJECTION 200 MG in SODIUM CHLORIDE 90 ML IVPB ONE (10:02)
[2018-10-17 11:06] LABS: BASO % 0.6 % (0-2.0); EOS % 0.8 % (0-4.5); HEMATOCRIT 26.7 % (35.4-49); HEMOGLOBIN 8.4 GM/dL (11.7-16.9); LYMPH % 18.9 % (8-40); MCH 23.3 pg (25.7-33.7); MCHC 31.4 g/dl (32.0-35.9); MEAN CELL VOLUME 74.1 fl (80-96); MEAN PLT VOLUME 7.2 fl (7.5-11.1); MONO % 9.3 % (3.8-10.2); NEUT % 70.4 % (42.8-82.8); PLATELET COUNT 415 K/MM3 (134-434); RDW 26.3 % (11.9-15.9); WHITE BLOOD COUNT 5.8 K/mm3 (4.0-10.0)
[2018-10-17 11:30] LABS: IRON SERUM 22 ug/dL (50-175); TOTAL IRON BINDING CAPACITY 444 ug/dL (250-450)
[2018-10-17 12:23] LABS: ANISOCYTOSIS 1+
[2018-10-17 12:56] VITALS: TEMP 98.6
[2018-10-17 12:57] VITALS: BP 113/71; PULSE 78
== END 2018-10-17 13:34 | disposition home or self-care (01) ==
LOC: JASUSAT 09:10 → J7W 09:26 → JASUSAT 13:34
PROVIDERS: ATTEND Internal Medicine Hematology & Oncology
PROC: 3E033GC Introduction of Other Therapeutic Substance into Peripheral Vein, Percutaneous Approach (ICD-10-PCS; principal; 2018-10-17)
DX: D64.9 Anemia, unspecified (principal)
CPT/HCPCS: 36415; 82728; 83540; 83550; 85025; 93971; 96365; J1756

== ENCOUNTER 2018-10-17 13:39 | Emergency (ER) | payer SELFPAY ==
[2018-10-17 13:59] VITALS: BP 130/85; PULSE 83; TEMP 97.9; BMI 24.0
--- NOTE | 2018-10-17 15:26 | PDOC ---
History of Present Illness - General Chief Complaint: Pain Stated Complaint: RT ARM PAIN Time Seen by Provider: 10/17/18 14:47 - History of Present Illness Initial Comments: Mr. Dhillon is a 42 y/o male with hx of anemia, GI bleed, presenting today with right arm swelling and erythema. Reports that he was in the hospital for an iron transfusion when he noticed pain and swelling in his right arm. Reports warmth and redness in the distal right arm. Denies fever, denies chills, denies chest pain, shortness of breath, leg swelling. PMH: anemia Past History - Past Medical History Allergies/Adverse Reactions: Allergies Allergy/AdvReac Type Severity Reaction Status Date / Time No Known Allergies Allergy Verified 10/10/18 21:48 Home Medications: Ambulatory Orders Iron Sucrose Injection [Venofer Injection -] 200 mg IVPB Q2D vial 10/14/18 COPD: No - Suicide/Smoking/Psychosocial Hx Smoking History: Never smoked Hx Alcohol Use: No Drug/Substance Use Hx: No Review of Systems - Review of Systems Comments:: GENERAL/CONSTITUTIONAL: No fever or chills. No weakness._ HEAD, EYES, EARS, NOSE AND THROAT: No change in vision. No change in hearing. No sore throat._ CARDIOVASCULAR: No chest pain or shortness of breath_ RESPIRATORY: Denies cough, hemoptysis_ GASTROINTESTINAL: No nausea, vomiting, diarrhea or constipation._ GENITOURINARY: No dysuria, frequency, or change in urination._ MUSCULOSKELETAL: Reports redness, swelling, and pain in the right distal arm. No neck or back pain._ SKIN: No rash. Erythema over right distal arm. NEUROLOGIC: No headache, vertigo, loss of consciousness, or change in strength/ sensation._ ENDOCRINE: No increased thirst. No abnormal weight change_ HEMATOLOGIC/LYMPHATIC: No anemia, easy bleeding, or history of blood clots._ ALLERGIC/IMMUNOLOGIC: No hives or skin allergy._ *Physical Exam - Vital Signs Last Vital Signs Temp Pulse Resp BP Pulse Ox 97.9 F 83 19 130/85 100 10/17/18 13:55 10/17/18 13:55 10/17/18 13:55 10/17/18 13:55 10/17/18 13:55 - Physical Exam Comments: GENERAL: Awake, alert, and oriented to person/place/time, in no acute distress_ HEAD: No signs of trauma, normocephalic, atraumatic _ EYES: PERRLA, EOMI, sclera anicteric, conjunctiva clear_ ENT: Hearing grossly normal, nares patent, oropharynx clear without exudates. No uvular deviation. Moist mucosa_ NECK: Normal ROM, supple, no lymphadenopathy, JVD, or masses_ LUNGS: No distress, speaks in full sentences, clear to auscultation bilaterally _ HEART: Regular rate and rhythm, normal S1 and S2, no murmurs appreciated, peripheral pulses normal and equal bilaterally._ ABDOMEN: Soft, nontender, normoactive bowel sounds. No guarding, no rebound. No masses_ EXTREMITIES: Erythema, tenderness, and swelling measuring approximately 3 cm in the right distal arm. Neurovascularly intact in bilateral upper extremities. NEUROLOGICAL: Cranial nerves II through XII grossly intact. Normal speech, normal gait, no focal sensorimotor deficits _ SKIN: Warm, Dry, normal turgor, no rashes or lesions noted_ ED Treatment Course - LABORATORY CBC & Chemistry Diagram: 10/17/18 16:48 10/17/18 16:48 Medical Decision Making - Medical Decision Making 42M with hx of anemia and GI bleed presenting with right distal arm swelling. No fever/chills/chest pain/shortness of breath. Doppler US of the upper extremities shows superficial clot in the cephalic vein. -CBC, CMP, coags 10/17/18 16:46 Discussed the case with Dr. Goel, who states that no anticoagulation is needed and recommends ice, arm elevation, and NSAIDs and to d/c home, f/u PCP. 10/17/18 1730 Labs reviewed. Patient is anemic which is his baseline. Plan to d/c home, f/u with the primary care residents clinic. *DC/Admit/Observation/Transfer Diagnosis at time of Disposition: Superficial venous thrombosis of arm Qualifiers: Laterality: right Qualified Code(s): I82.611 - Acute embolism and thrombosis of superficial veins of right upper extremity - Discharge Dispostion Disposition: HOME Condition at time of disposition: Stable - Referrals Referrals: Silas Jacobs MD [Staff Physician] - - Patient Instructions Printed Discharge Instructions: DI for Superficial Thrombophlebitis Additional Instructions: Please rest, elevate, and ice your right arm. Please make an appointment with Dr. Jacobs (primary care) or another primary care physician to follow up with this visit. If you experience any new, worsening, or concerning symptoms, including severe swelling of the arm, shortness of breath, chest pain, weakness, or any other symptoms, please return to the emergency department. Heidea, alayna y robina tu antonella santiago. Chris tracy evelio con el Dr. Jacobs (doctora primaria) u otro mdico de atencin primaria para nasreen seguimiento a esta visita. Si experimenta algn sntoma nuevo, que empeora o preocupa, que incluye hinchazn severa del brazo, dificultad para respirar, dolor en el pecho, debilidad o cualquier otro sntoma, regrese al departamento de emergencias. - Post Discharge Activity
--- NOTE | 2018-10-17 16:13 | PDOC ---
Attending Attestation - Resident Resident Name: Marcus Santacruz - ED Attending Attestation I have performed the following: I have examined & evaluated the patient, The case was reviewed & discussed with the resident, I agree w/resident's findings & plan, Exceptions are as noted - HPI HPI: 10/17/18 16:10 42yo M hx GIB, iron deficiency anemia, WPW presents to the ED with right arm pain. Pt recently admitted for GIB, was given 2 units blood, found to have iron deficiency anemia and since then has been receiving IV iron infusions with Dr. Martinez. Pt reports R arm swelling to the antecubital fossa since Wednesday. He had an IV placed in his R AC the day before. He reports 2/10 pain, denies redness, fevers, chills. Today, pt was set to get another iron infusion when the staff noted his R arm had swelling. Dr. Tineo ordered an US which revealed a superficial thrombophlebitis of the cephalic vein. Dr. Tineo sent pt down to the ED at that point for evaluation and consultation with vascular. Denies numbness, tingling or weakness of RUE. Denies headache, CP, SOB, abd pain, N/V/D , LE edema. - Physicial Exam PE: 10/17/18 17:28 GENERAL: Awake, alert, and fully oriented, in no acute distress EYES: PERRLA, EOMI, sclera anicteric, conjunctiva clear ENT: Auricles normal inspection, hearing grossly normal, nares patent, oropharynx clear without exudates. Moist mucosa NECK: Normal ROM, supple, no lymphadenopathy, JVD, or masses LUNGS: Breath sounds equal, clear to auscultation bilaterally. No wheezes, and no crackles HEART: Regular rate and rhythm, normal S1 and S2, no murmurs, rubs or gallops ABDOMEN: Soft, nontender, normoactive bowel sounds. No guarding, no rebound. No masses EXTREMITIES: R AC with mild edema and mild ttp. No erythema, induration, or fluctuance. 2+ distal RUE radial pulse. Normal strength and sensation distally. Compartments to RUE are soft. Otherwise, normal range of motion, no edema. No clubbing or cyanosis. No cords, erythema, or tenderness NEUROLOGICAL: Normal speech, cranial nerves intact, equal strength and sensation b/l SKIN: Warm, Dry, normal turgor, no rashes or lesions noted. - Medical Decision Making 10/17/18 17:30 42yo M presents to the ED with superficial thrombophlebitis of the R cephalic vein diagnosed on US here today. Vitals wnl Exam with mild edema to AC fossa, RUE is neurovascularly intact Labs unremarakble Case discussed with Dr. Goel from vascular, recommends ice and elevation of the RUE and DC Plan discussed with Dr. Tinoe, who is in agreement with plan Pt is clincially stable for DC home I discussed the physical exam findings, ancillary test results and final diagnoses with the patient. I answered all of the patient's questions. The patient was satisfied with the care received and felt comfortable with the discharge plan and treatment plan. The patient will call their primary care physician within 24 hours to arrange follow-up and will return to the Emergency Department with any new, persistent or worsening symptoms.
[2018-10-17 17:02] LABS: BASO % 0.8 % (0-2.0); EOS % 0.5 % (0-4.5); HEMATOCRIT 29.7 % (35.4-49); HEMOGLOBIN 9.3 GM/dL (11.7-16.9); LYMPH % 21.4 % (8-40); MCH 23.1 pg (25.7-33.7); MCHC 31.4 g/dl (32.0-35.9); MEAN CELL VOLUME 73.4 fl (80-96); MEAN PLT VOLUME 7.3 fl (7.5-11.1); MONO % 10.4 % (3.8-10.2); NEUT % 66.9 % (42.8-82.8); PLATELET COUNT 460 K/MM3 (134-434); RBC 4.05 M/mm3 (4.00-5.60); RDW 25.9 % (11.9-15.9); WHITE BLOOD COUNT 6.7 K/mm3 (4.0-10.0)
[2018-10-17 17:25] LABS: ALBUMIN 3.9 g/dl (3.4-5.0); BILIRUBIN,TOTAL 0.3 mg/dL (0.2-1); BLOOD UREA NITROGEN 6.9 mg/dL (7-18); CALCIUM 9.1 mg/dL (8.5-10.1); CREATININE 0.7 mg/dL (0.55-1.3); POTASSIUM 3.9 mmol/L (3.5-5.1); TOT PROT 7.1 g/dl (6.4-8.2)
[2018-10-17 17:31] LABS: INR 1.13 (0.83-1.09); PROTHROMBIN TIME (PATIENT) 13.3 SEC (9.7-13.0)
== END 2018-10-17 17:52 | disposition home or self-care (01) ==
LOC: JER 13:39
DX: T80.1XXA Vascular complications following infusion, transfusion and therapeutic injection, initial encounter (principal); I82.611 Acute embolism and thrombosis of superficial veins of right upper extremity
CPT/HCPCS: 36415; 80053; 85025; 85610; 85730; 99282-25

== ENCOUNTER 2018-10-24 09:26 | Day surgery (SDC) | payer MEDICARE ==
[2018-10-24] MEDS ORDERED: FERRIC CARBOXYMALTOSE 750 MG in SODIUM CHLORIDE 250 ML IVPB ONE (10:00)
[2018-10-24 15:55] VITALS: BP 117/65; PULSE 84; TEMP 98.4
== END 2018-10-24 11:25 | disposition home or self-care (01) ==
LOC: JASUSAT 09:26 → J7W 09:40 → JASUSAT 11:25
PROVIDERS: ATTEND Internal Medicine Hematology & Oncology
PROC: 3E033GC Introduction of Other Therapeutic Substance into Peripheral Vein, Percutaneous Approach (ICD-10-PCS; principal; 2018-10-24)
DX: E61.1 Iron deficiency (principal)
CPT/HCPCS: 96365; J1439